=== PATIENT | male | born 1970 | race Caucasian/White ===

== ENCOUNTER → 2018-02-12 | Outpatient (CLI) | payer OTHER ==
--- NOTE | 2018-02-12 11:13 | ST Modified Barium Swallow ---
Recommendation - Recommendations Recommendations: Patient presents with mild residuals in the valleculae and pyriform sinuses. Multiple swallows and liquid wash required to clear residuals. Recommend follow-up with 1-2 sessions of outpatient treatment to address residuals and train compensatory strategies. Medical Diagnoses - Medical Diagnoses Medical Diagnosis Description & ICD-10 Code(s): R13.10 dysphagia Other Medical Diagnoses/Co-Morbidities: dysphagia, no other conditions reported ST Modified Barium Swallow - General Date: 02/12/18 Referring Physician: Jorge Chao DO Risks/Precautions: None Reason for Referral: Globus sensation - History History obtained from: Patient -: Medical, ST - History obtained from patient at outpatient evaluations on 01/23. At that time, patient reported: Patient referred by his physician on for a speech evaluation due to "difficulty swallowing dry foods since 2003...neurological intact". MEDICAL HISTORY: Patient reports difficulty swallowing since end of 2003, unable to give exact onset date. No clear etiology reported. Patient had a barium swallow in 2004. Sensation of something stuck in throat. Reports that dry foods cause this more frequently. No difficulty swallowing liquids or pills. Had recent endoscope with no significant findings. No injuries of surgeries to head or neck. No coughing reported. Also has globus sensation when not eating or drinking items. No foods being avoided. Medications: Per outpatient evaluation (01/23/18): Zyrtec, toporol Allergies: Per outpatient evaluation (01/23/18): tetracycline, no food allergies - Functional Status Prior Functional Status: INDEPENDENT: feeding - Independent Current Functional Limitations: feeding - Globus sensation - Subjective Patient/caregiver goal(s): better swallow, safe swallow Cognitive-Linguistic Function: WNL Speech Intelligibility: WNL Current Nutritional Means: PO Current PO diet: Regular Current symptoms: Coughing, c/o Globus sensation Pain: Patient reports, 0/5 - Objective Assessment: Upright, Left Lateral - Food Trials Used Food trials used: Thin liquids, Pureed, Regular The patient: Was Able to Self Feed, via cup, via spoon - Oral-Motor Skills Dentition: Full - Assessment Oral prep: Normal Labial closure: Adequate Leakage: None Mastication: Adequate Lingual Movement: Normal Oral stage: Normal for this Procedure - Pharyngeal Stage Initiation of Pharyngeal Stage Reflex: Normal Decreased laryngeal elevation: No Reduced Velopharyngeal Closure: no Reduced pressure generation: No reduced tongue-based retraction: No Pre-swallow pooling in valleculae: None Pre-Swallow pooling in pyriforms: None Reduced Thyro-Hyoid approximation: No Reduced epiglottic excursion: No Reduced pharyngeal peristalsis/contraction: No Multiple Swallows with: Cleared w/ Liquid Assist Post-swallow residulas vallecular: Moderate - cracker trial only Post-Swallow residuals in pyriforms: Mild Post-Swallow Residuals: no residuals - Fall Risk Assessment Medications/Conditions that increase fall risks include: Antidepressants, sedatives, anti-arrhythmic, diuretic, benzodiazipenes, neuroleptics. BP regulation problems, cardiac problems, balance or gait deficits, neurological problems. Is patient considered at risk for falls: no Fall Risk Actions Taken: No action needed - Behavioral Observations During evaluation process patient: was pleasant, able to answer questions - Treatment / Educational Needs: Treatment/Education Needs: Treatment consisted of patient education on the role of the Speech Pathologist. Patient's plan of care and golas were communicated as well as scheduling and attendance policies. Recommendations for initial home program were shared. Patient demonstrated understanding and verbalized agreement. - Impression/Summary Laryngeal Penetration: No Tracheal Aspiration: no Patient presents with: Pharyngeal stage dysph., Mild-Moderate Risk of Aspiration: Minimal Risk of nutritional compromise: None Risk due to: Mild post-swallow residuals in the valleculae and pyriform sinuses Evaluation and Findings: Patient presents with mild post-swallow residuals in the pyriform sinuses, and moderate post-swallow residuals in the valleculae with cracker-trials only. Anatomical variance noted; reduced epiglottis length, not impacting swallowing funtion. Increased residue noted with meka cracker trial; minimal residue noted on other consistencies. - Recommendations NPO: no Solid diet recommendations: Regular Liquid Diet Modification: Thin Strict aspiration precautions: No Pt/Family education and followup with MD: Yes Dysphagia therapy with [employer]: yes, dysphagia therapy, f/u with current thera. Recommended techniques: Fully Upright During Meal, Alternate Bites/Sips Supervision: Independent Information, Precautions and Recommendations: Patient (Written), Patient (Verbal ) - Time Total Time: 30 - Plan of Care Summary: Patient instructed to call therapy clinic to schedule follow up appointments to address dysphagia exercises/strategies. POC Procedures/Codes: pharyngeal exercises, pt/family education Strategies to optimize patient understanding include:: ongoing assessment of educational needs, implementation of educational strategies, and re-education. - - -: Thank you for the opportunity to work with this patient and his/her family. Should you have any questions about this patient's plan or progress, I can be reached at [phone]. Charge G Code? - - -: No
--- NOTE | 2018-02-12 12:51 | RADIOLOGY REPORT (SQ) ---
EXAM DESCRIPTION: COOKIE SWALLOW COMPLETED DATE/TIME: 02/12/2018 8:36 am REASON FOR STUDY: DYSPHAGIA (R13.10) R13.10 DYSPHAGIA, UNSPECIFIED bolus sensation in throat COMPARISON: None. TECHNIQUE: Videofluoroscopic swallowing examination was performed in conjunction with speech patholo gy. Videofluoroscopic imaging was obtained and reviewed and these are the findings: RADIATION DOSE: 1 minutes 49 seconds of fluoroscopy was used. 2 images saved to PACS. LIMITATIONS: None FINDINGS: The patient was brought into the fluoro room and placed upright on a modified barium swall ow chair. The patient was then given multiple consistencies mixed with barium to swallow under live fluoroscopic video guidance. According to the Speech Pathologist there was no penetration or aspirat ion. Post swallow residual contrast seen within the piriform sinuses. IMPRESSION: NO EVIDENCE OF PENETRATION OR ASPIRATIONPLEASE SEE SPEECH PATHOLOGIST REPORT FOR OTHER F INDINGS AND RECOMMENDATIONS. COMMENT: Quality ID [id number]: Final reports for procedures using fluoroscopy that document radiation exp osure indices, or exposure time and number of fluorographic images (if radiation exposure indices are not available) TECHNICAL DOCUMENTATION: JOB ID: [id number] [employer]- All Rights Reserved Reading location - IP/workstation name: [email or web address]
== END ==
LOC: RAD 07:19
PROVIDERS: ATTEND Family Medicine
DX: R13.10 Dysphagia, unspecified (principal)
CPT/HCPCS: 74230